=== PATIENT | female | born 1960 | race African-American/Black ===

== ENCOUNTER 2024-04-02 18:46 | Inpatient (IN) | payer MEDICARE, OTHER ==
[~2024-04-02] VITALS: Ht 165.1 cm; Wt 92.5 kg
[2024-04-02 19:27] LABS: BASOPHILS % (AUTO) 0.5 % (0.0-2.0); EOSINOPHILS # (AUTO) 0.1 K/uL (0.0-0.7); EOSINOPHILS % (AUTO) 1.9 % (0.0-7.0); HEMATOCRIT 33.6 % (31.2-41.9); HEMOGLOBIN 10.5 g/dL (10.9-14.3); LYMPHOCYTES # (AUTO) 1.8 K/uL (0.8-4.8); LYMPHOCYTES % (AUTO) 29.6 % (20.5-51.5); MEAN CORPUSCULAR HEMOGLOBIN 24.1 uug (24.7-32.8); MEAN CORPUSCULAR HGB CONC 31 g/dL (32.3-35.6); MEAN CORPUSCULAR VOLUME 77.1 fL (75.5-95.3); MONOCYTES # (AUTO) 0.4 K/uL (0.1-1.30); MONOCYTES % (AUTO) 7.1 % (0.0-11.0); NEUTROPHILS # (AUTO) 3.8 K/uL (1.8-8.9); NEUTROPHILS % (AUTO) 60.9 % (38.5-71.5); PLATELET COUNT (AUTO) 196 K/uL (179-408); RED BLOOD CELL COUNT(AUTO) 4.35 MIL/uL (3.63-4.92); RED CELL DISTRIBUTION WIDTH 17.8 % (12.3-17.7); WHITE BLOOD COUNT (AUTO) 6.2 K/uL (3.8-11.8)
[2024-04-02 19:30] LABS: DIFFERENTIAL COMMENT 1
[2024-04-02 19:44] LABS: CALCIUM 9.4 mg/dL (8.5-10.1); CARBON DIOXIDE 25 mmol/L (21-32); CHLORIDE 99 mmol/L (98-107); SODIUM SERUM 135 mmol/L (136-145); UREA NITROGEN, BLOOD 32 mg/dL (7-18)
[2024-04-02 19:50] LABS: GLUCOSE 407 mg/dL (74-106)
[2024-04-03] MEDS ORDERED: DULO30CA2 PO (02:48)
[2024-04-03] MEDS ORDERED: SACU1TAB4 PO (02:48)
[2024-04-03] MEDS ORDERED: [UNRECOGNIZED DRUG - CODE] PO (02:48)
[2024-04-03] MEDS ORDERED: AMIT50TA17 PO (02:48)
[2024-04-03] MEDS ORDERED: BACL5TAB PO (02:48)
[2024-04-03] MEDS ORDERED: PANT40TA2 PO (02:48)
[2024-04-03] MEDS ORDERED: INSU100I14 SQ (02:48)
[2024-04-03] MEDS ORDERED: [UNRECOGNIZED DRUG - CODE] PO (02:48)
[2024-04-03] MEDS ORDERED: PRAS10TA9 PO (02:48)
[2024-04-03] MEDS ORDERED: ASPI81TA31 PO (02:48)
[2024-04-03] MEDS ORDERED: DIGO125T20 PO (02:48)
[2024-04-03] MEDS ORDERED: CARV6.25 PO (02:48)
[2024-04-03] MEDS ORDERED: ISOS60TA PO (02:48)
[2024-04-03] MEDS ORDERED: GABA-536 PO (02:48)
[2024-04-03] MEDS ORDERED: SOTA80TA PO (02:48)
[2024-04-03] MEDS ORDERED: DOCU100C58 PO (02:48)
[2024-04-03] MEDS ORDERED: INSU100V7 SQ (02:48)
[2024-04-03] MEDS ORDERED: ICOS1CAP PO (02:48)
[2024-04-03 04:45] VITALS: BP 135/50; TEMP 97.6; O2SAT 99
[2024-04-03] MEDS ORDERED: ACETAMINOPHEN 325 MG TABLET PO PRN (04:45)
[2024-04-03] MEDS ORDERED: REMEDY ESSENTIAL ZINC PASTE 113 GM TP PRN (04:45)
[2024-04-03] MEDS ORDERED: MAGNESIUM HYDROXIDE 30 ML LIQUID UDC PO PRN (04:45)
[2024-04-03] MEDS ORDERED: BACLOFEN 10 MG TABLET PO PRN (04:45)
[2024-04-03] MEDS ORDERED: ONDANSETRON 4 MG/2 ML VIAL IV PRN (04:45)
[2024-04-03] MEDS ORDERED: DEXTROSE 50% 50 ML DISP.SYRIN IV PRN (04:45)
[2024-04-03] MEDS: MORPHINE SULFATE 2 MG/1 ML DISP.SYRIN IV PRN (04:58)
[2024-04-03] MEDS: GABAPENTIN 400 MG CAPSULE PO SCH (05:09)
[2024-04-03] MEDS: ASPIRIN 325 MG TABLET PO ONE (05:09)
[2024-04-03] MEDS: BLOOD SUGAR DIAGNOSTIC 1 EACH STRIP VI SCH (06:33)
[2024-04-03] MEDS: PANTOPRAZOLE SODIUM 40 MG TABLET.DR PO SCH (06:33)
[2024-04-03 07:54] VITALS: BP 112/72; TEMP 97.6
[2024-04-03] MEDS: INSULIN REGULAR, HUMAN 300 UNIT/3 ML VIAL SQ PRN (07:55)
[2024-04-03] MEDS: DOCUSATE SODIUM 100 MG CAPSULE PO SCH (08:06)
[2024-04-03] MEDS: DULOXETINE 30 MG CAPSULE.DR PO SCH (08:06)
[2024-04-03] MEDS: MECLIZINE HCL 25 MG TABLET PO SCH (08:06)
[2024-04-03] MEDS: ISOSORBIDE MONONITRATE 60 MG TAB.SR.24H PO SCH (08:07)
[2024-04-03] MEDS: SOTALOL HCL 80 MG TABLET PO SCH (08:08)
[2024-04-03] MEDS: CARVEDILOL 6.25 MG TABLET PO SCH (08:08)
[2024-04-03] MEDS ORDERED: DIGOXIN 125 MCG TABLET PO SCH (09:00)
[2024-04-03] MEDS: PRASUGREL HCL 5 MG TABLET PO SCH (10:29)
[2024-04-03] MEDS ORDERED: FERR-68 PO (11:05)
[2024-04-03] MEDS ORDERED: ERGO500040 PO (11:05)
[2024-04-03 11:49] VITALS: BP 100/44; TEMP 98.4; O2SAT 96
[2024-04-03 16:06] VITALS: BP 146/65; TEMP 97.3; O2SAT 98
[2024-04-03] MEDS: AMITRIPTYLINE HCL 50 MG TABLET PO SCH (21:24)
[2024-04-03 22:21] VITALS: BP 137/60; TEMP 97.8; O2SAT 98
[2024-04-03] MEDS: ZOLPIDEM 5 MG TABLET PO PRN (22:56)
[2024-04-04] VITALS: BP 150/66; TEMP 97.8; O2SAT 97
[2024-04-04 06:00] VITALS: BP 141/67; TEMP 97.7; O2SAT 100
[2024-04-04] MEDS: PANTOPRAZOLE SODIUM 40 MG TABLET.DR PO SCH (06:38)
[2024-04-04 07:10] LABS: BASOPHILS % (AUTO) 0.5 % (0.0-2.0); CALCIUM 8.9 mg/dL (8.5-10.1); CARBON DIOXIDE 25 mmol/L (21-32); CHLORIDE 102 mmol/L (98-107); CREATININE 1.9 mg/dL (0.6-1.3); EOSINOPHILS # (AUTO) 0.2 K/uL (0.0-0.7); EOSINOPHILS % (AUTO) 2.9 % (0.0-7.0); GLUCOSE 308 mg/dL (74-106); HEMOGLOBIN 10.2 g/dL (10.9-14.3); MEAN CORPUSCULAR HEMOGLOBIN 24.1 uug (24.7-32.8); MEAN CORPUSCULAR HGB CONC 31 g/dL (32.3-35.6); MEAN CORPUSCULAR VOLUME 78.4 fL (75.5-95.3); MONOCYTES # (AUTO) 0.6 K/uL (0.1-1.30); MONOCYTES % (AUTO) 8.1 % (0.0-11.0); NEUTROPHILS # (AUTO) 3.1 K/uL (1.8-8.9); NEUTROPHILS % (AUTO) 45.5 % (38.5-71.5); PLATELET COUNT (AUTO) 184 K/uL (179-408); POTASSIUM 4.7 mmol/L (3.5-5.1); RED BLOOD CELL COUNT(AUTO) 4.21 MIL/uL (3.63-4.92); RED CELL DISTRIBUTION WIDTH 18.1 % (12.3-17.7); SODIUM SERUM 135 mmol/L (136-145); UREA NITROGEN, BLOOD 38 mg/dL (7-18); WHITE BLOOD COUNT (AUTO) 6.9 K/uL (3.8-11.8)
[2024-04-04 07:18] LABS: ALANINE AMINOTRANSFERASE 10 U/L (14-59); ALBUMIN 3.3 g/dL (3.4-5.0); ALKALINE PHOSPHATASE 75 U/L (50-136); ASPARTATE AMINOTRANSFERASE < 5 U/L (15-37); BILIRUBIN,TOTAL 0.3 mg/dL (0.2-1.0); DIFFERENTIAL COMMENT 1; TOTAL PROTEIN, SERUM 8.1 g/dL (6.4-8.2)
[2024-04-04 07:23] LABS: THYROID STIMULATING HORMONE 4.904 mIU/mL (0.358-3.740)
[2024-04-04 07:31] LABS: DIGOXIN < 0.2 ng/mL (0.9-2.0)
[2024-04-04] MEDS ORDERED: IV 1/2NS 1000 ML 1,000 ML IV PRN (07:45)
[2024-04-04 07:49] LABS: CHOLESTEROL 218 mg/dL (<200); HDL CHOLESTEROL 34 mg/dL (40-60); TRIGLYCERIDES 395 MG/DL (30-150)
[2024-04-04 08:00] VITALS: BP 122/58; TEMP 97.7; O2SAT 100
[2024-04-04] MEDS: ASPIRIN 81 MG TAB.CHEW PO SCH (08:30)
[2024-04-04 10:05] LABS: MAGNESIUM 2.6 mg/dL (1.8-2.4)
[2024-04-04] MEDS: DIGOXIN 125 MCG TABLET PO SCH (12:39)
[2024-04-04 16:00] VITALS: BP 162/66; TEMP 98.1; O2SAT 96
[2024-04-04 20:08] VITALS: BP 144/56; TEMP 97.8; O2SAT 98
[2024-04-04] MEDS: INSULIN GLARGINE,HUM 300 UNITS/3 ML CARTRIDGE SQ SCH (20:39)
[2024-04-05 07:07] VITALS: BP 138/64; TEMP 98; O2SAT 100
[2024-04-05 07:10] LABS: BASOPHILS # (AUTO) 0.1 K/UL (0.0-0.2); BASOPHILS % (AUTO) 0.8 % (0.0-2.0); EOSINOPHILS # (AUTO) 0.3 K/uL (0.0-0.7); EOSINOPHILS % (AUTO) 4.5 % (0.0-7.0); HEMATOCRIT 33.1 % (31.2-41.9); HEMOGLOBIN 10.3 g/dL (10.9-14.3); LYMPHOCYTES # (AUTO) 2.7 K/uL (0.8-4.8); LYMPHOCYTES % (AUTO) 37.5 % (20.5-51.5); MEAN CORPUSCULAR HEMOGLOBIN 24.2 uug (24.7-32.8); MEAN CORPUSCULAR HGB CONC 31 g/dL (32.3-35.6); MEAN CORPUSCULAR VOLUME 77.9 fL (75.5-95.3); MONOCYTES # (AUTO) 0.5 K/uL (0.1-1.30); MONOCYTES % (AUTO) 7.5 % (0.0-11.0); NEUTROPHILS # (AUTO) 3.6 K/uL (1.8-8.9); NEUTROPHILS % (AUTO) 49.7 % (38.5-71.5); PLATELET COUNT (AUTO) 210 K/uL (179-408); RED BLOOD CELL COUNT(AUTO) 4.25 MIL/uL (3.63-4.92); RED CELL DISTRIBUTION WIDTH 18.5 % (12.3-17.7); WHITE BLOOD COUNT (AUTO) 7.2 K/uL (3.8-11.8)
[2024-04-05 07:18] LABS: DIFFERENTIAL COMMENT 1
[2024-04-05 07:52] LABS: ALBUMIN 3.4 g/dL (3.4-5.0); BILIRUBIN,TOTAL 0.2 mg/dL (0.2-1.0); CALCIUM 8.8 mg/dL (8.5-10.1); CREATININE 1.6 mg/dL (0.6-1.3); MAGNESIUM 2.5 mg/dL (1.8-2.4); PHOSPHOROUS 3.3 mg/dL (2.5-4.9); POTASSIUM 4.2 mmol/L (3.5-5.1); TOTAL PROTEIN, SERUM 8.5 g/dL (6.4-8.2)
[2024-04-05] MEDS ORDERED: INSU100V7 SQ (09:55)
[2024-04-05] MEDS: INSULIN GLARGINE,HUM 300 UNITS/3 ML CARTRIDGE SQ SCH (10:14)
[2024-04-05 12:00] VITALS: BP 160/56; TEMP 97.8; O2SAT 100
[2024-04-06 08:06] LABS: PTH, INTACT 44 pg/mL (15-65)
[2024-04-06 10:11] LABS: A/G RATIO 0.7 (0.7-1.7); ALBUMIN 3.2 g/dL (2.9-4.4); ALPHA-1-GLOBULIN 0.2 g/dL (0.0-0.4); ALPHA-2-GLOBULIN 0.9 g/dL (0.4-1.0); BETA GLOBULIN 1.4 g/dL (0.7-1.3); GAMMA GLOBULIN 2.1 g/dL (0.4-1.8); GLOBULIN, TOTAL 4.6 g/dL (2.2-3.9); M-SPIKE Not Observed g/dL (Not Observed)
== END 2024-04-05 14:55 | DRG 205 ==
LOC: ER 18:47 → TELE3 23:42 → MEDSURG3 04-04 09:43
PROVIDERS: ATTEND Internal Medicine
PROC: 05H933Z Insertion of Infusion Device into Right Brachial Vein, Percutaneous Approach (ICD-10-PCS; principal; 2024-04-03)
DX: M94.0 Chondrocostal junction syndrome [Tietze] (principal); N17.0 Acute kidney failure with tubular necrosis; I13.0 Hypertensive heart and chronic kidney disease with heart failure and stage 1 through stage 4 chronic kidney disease, or unspecified chronic kidney disease; I50.22 Chronic systolic (congestive) heart failure; D68.59 Other primary thrombophilia; I47.20 Ventricular tachycardia, unspecified; R70.0 Elevated erythrocyte sedimentation rate; I25.5 Ischemic cardiomyopathy; I48.0 Paroxysmal atrial fibrillation; M32.9 Systemic lupus erythematosus, unspecified; N18.2 Chronic kidney disease, stage 2 (mild); E11.22 Type 2 diabetes mellitus with diabetic chronic kidney disease; K21.9 Gastro-esophageal reflux disease without esophagitis; G47.33 Obstructive sleep apnea (adult) (pediatric); Z95.810 Presence of automatic (implantable) cardiac defibrillator; Z74.09 Other reduced mobility; Q78.9 Osteochondrodysplasia, unspecified; Z79.899 Other long term (current) drug therapy; Z98.61 Coronary angioplasty status; Z95.1 Presence of aortocoronary bypass graft; Z90.49 Acquired absence of other specified parts of digestive tract; Z87.440 Personal history of urinary (tract) infections; I25.10 Atherosclerotic heart disease of native coronary artery without angina pectoris; F32.A Depression, unspecified; E66.9 Obesity, unspecified; Z68.32 Body mass index [BMI] 32.0-32.9, adult; E78.5 Hyperlipidemia, unspecified; E11.65 Type 2 diabetes mellitus with hyperglycemia; D63.8 Anemia in other chronic diseases classified elsewhere; Z79.82 Long term (current) use of aspirin; Z79.4 Long term (current) use of insulin; I35.8 Other nonrheumatic aortic valve disorders
CPT/HCPCS: 36415; 70450; 71045; 83690; 83735; 83970; 84100; 84155; 84165; 84443; 84484; 85025; 85651; 93005; 93307; G0378; J1815; J2270; J8597